=== PATIENT | male | born 1960 | race Caucasian/White ===

== ENCOUNTER 2017-02-06 01:58 | Emergency (ER) | payer SELFPAY ==
[~2017-02-06] VITALS: Ht 170.2 cm; Wt 86.4 kg
[2017-02-06 02:07] VITALS: BP 164/116; PULSE 122; RESP 16; TEMP 98.6; O2SAT 94
[2017-02-06] MEDS ORDERED: CLIN1CAP6 PO (02:25)
--- NOTE | 2017-02-06 03:22 | PD ---
HPI Chief Complaint: Facial Pain or Swelling Time Seen by Provider: 03:13 Travel History International Travel<30 days: No Contact w/Intl Traveler<30days: No Traveled to known affect area: No History of Present Illness HPI The patient is a 56-year-old male that had a dental extraction 4 days ago in [place] where apparently tooth #1 was removed. He is now edentulous on the uppers. He complained of progressive swelling in the right cheek and face since. He denies any fever. He denies any shortness of breath or airway obstruction. The patient has been taking clindamycin 300 mg OR 600 mg once daily for 2 days. PFSH Past Medical History GERD: Yes ("HISTORY OF CYCLIC VOMITING") Pneumonia: Yes (JUNE 2015) Tetanus Vaccination: > 5 Years Influenza Vaccination: No Past Surgical History Oral Surgery: Yes Other Surgery: Yes (HEMORRHOIDECTOMY: AGE 31) Social History Alcohol Use: No Tobacco Use: Yes (11/29 PPD) Substance Use: No Allergies-Medications (Allergen,Severity, Reaction): Coded Allergies: No Known Allergies (Unverified , 02/06/17) Reported Meds & Prescriptions Reported Meds & Active Scripts Active Percocet (Oxycodone-Acetaminophen) 7.5-325 mg Tab 1 Tab PO Q4H PRN Amoxicillin 875 Mg Tab 875 Mg PO BID 10 Days Cleocin (Clindamycin HCl) 300 Mg Cap 300 Mg PO Q6H 10 Days Reported Clindamycin (Clindamycin HCl) 300 Mg Cap 300 Mg PO BID Review of Systems Except as stated in HPI: all other systems reviewed are Neg Physical Exam Narrative GENERAL: The patient is alert, oriented 3 in moderate apparent distress with his right facial swelling. His vital signs show heart rate of 122 and blood pressure 160 12/28/15 but otherwise normal. SKIN: Focused skin assessment warm/dry. There is considerable swelling without any fluctuance on the right cheek and right mandibular area. There is no swelling below the mandible or below the tongue. There is no airway obstruction present. HEAD: Atraumatic. Normocephalic. EYES: Pupils equal and round. No scleral icterus. No injection or drainage. ENT: No nasal bleeding or discharge. Mucous membranes pink and moist. NECK: Trachea midline. No JVD. CARDIOVASCULAR: Regular rate and rhythm. No murmur appreciated. RESPIRATORY: No accessory muscle use. Clear to auscultation. Breath sounds equal bilaterally. GASTROINTESTINAL: Abdomen soft, non-tender, nondistended. Hepatic and splenic margins not palpable. MUSCULOSKELETAL: No obvious deformities. No clubbing. No cyanosis. No edema. NEUROLOGICAL: Awake and alert. No obvious cranial nerve deficits. Motor grossly within normal limits. Normal speech. PSYCHIATRIC: Appropriate mood and affect; insight and judgment normal. DENTAL: No loose or chipped teeth. No malocclusion. There is exquisite tenderness around tooth #1 or the wisdom tooth which apparently was extracted from that area. Data Data Last Documented VS Vital Signs Date Time Temp Pulse Resp B/P Pulse Ox O2 Delivery O2 Flow Rate FiO2 02/06/17 03:43 100.4 107 20 94 Room Air 02/06/17 02:07 164/116 Orders Complete Blood Count With Diff (02/06/17 03:22) Basic Metabolic Panel (Bmp) (02/06/17 03:22) Ceftriaxone Inj (Rocephin Inj) (02/06/17 03:30) Ketorolac Inj (Toradol Inj) (02/06/17 04:15) Labs Laboratory Tests Test 02/06/17 03:25 White Blood Count 15.8 TH/MM3 Red Blood Count 5.08 MIL/MM3 Hemoglobin 15.1 GM/DL Hematocrit 44.7 % Mean Corpuscular Volume 88.0 FL Mean Corpuscular Hemoglobin 29.7 PG Mean Corpuscular Hemoglobin 33.7 % Concent Red Cell Distribution Width 13.5 % Platelet Count 179 TH/MM3 Mean Platelet Volume 8.8 FL Neutrophils (%) (Auto) 78.1 % Lymphocytes (%) (Auto) 7.8 % Monocytes (%) (Auto) 11.3 % Eosinophils (%) (Auto) 0.3 % Basophils (%) (Auto) 2.5 % Neutrophils # (Auto) 12.4 TH/MM3 Lymphocytes # (Auto) 1.2 TH/MM3 Monocytes # (Auto) 1.8 TH/MM3 Eosinophils # (Auto) 0.0 TH/MM3 Basophils # (Auto) 0.4 TH/MM3 CBC Comment DIFF FINAL Differential Comment Sodium Level 142 MEQ/L Potassium Level 3.8 MEQ/L Chloride Level 111 MEQ/L Carbon Dioxide Level 21.6 MEQ/L Anion Gap 9 MEQ/L Blood Urea Nitrogen 17 MG/DL Creatinine 0.96 MG/DL Estimat Glomerular Filtration 81 ML/MIN Rate Random Glucose 114 MG/DL Calcium Level 9.1 MG/DL MDM Medical Decision Making Medical Screen Exam Complete: Yes Emergency Medical Condition: Yes Medical Record Reviewed: Yes Interpretation(s) The CBC shows a white count of 15,800 with 78% neutrophils but is otherwise unremarkable. The basic metabolic profile shows a GFR of 81 but is otherwise normal. Differential Diagnosis Dental infection, drainable abscess, Juan David's angina, Narrative Course The patient has a dental infection. No drainable abscess was noted. He does not have Juan Daivd's angina at this time. Diagnosis Primary Impression: Dental infection Additional Impression: Cellulitis of buccal space of mouth Additional Instructions: Take the clindamycin 300 mg 4 times daily. The Keflex is taken one tablet 4 times a day as well. Med/Other Pt SpecificInfo: Prescription(s) given Scripts Oxycodone-Acetaminophen (Percocet)7.5-325 mg Tab1 Tab PO Q4H PRN (PAIN) #30 TAB Ref 0 Prov:Tesfaye Goldberg MD 02/06/17 Amoxicillin 875 Mg [id number] Mg PO BID 10 Days Ref 0 Prov:Tesfaye Goldberg MD 02/06/17 Clindamycin (Cleocin)300 Mg [id number] Mg PO Q6H 10 Days Ref 0 Prov:Tesfaye Goldberg MD 02/06/17 Disposition: 01 DISCHARGE HOME Condition: Stable Tesfaye Goldberg MD February 06, 2017 03:22
[2017-02-06] MEDS ORDERED: cefTRIAXone INJ 2,000 MG in SODIUM CHLORIDE 0.9% INJ 100 ML IV ONE (03:30)
[2017-02-06] MEDS ORDERED: CLEO300C2 PO (03:35)
[2017-02-06] MEDS ORDERED: AMOX875T PO (03:35)
[2017-02-06 03:43] VITALS: PULSE 107; RESP 20; TEMP 100.4; O2SAT 94
[2017-02-06 03:46] LABS: AUTOMATED NEUTROPHIL # 12.4 TH/MM3 (1.8-7.7); BASOPHIL # 0.4 TH/MM3 (0-0.2); BASOPHIL % 2.5 % (0.0-2.0); EOSINOPHIL % 0.3 % (0.0-4.0); HEMATOCRIT 44.7 % (39.0-51.0); LYMPH % 7.8 % (9.0-44.0); LYMPHOCYTE # 1.2 TH/MM3 (1.0-4.8); MEAN CORPUSCULAR HEMOGLOBIN 29.7 PG (27.0-34.0); MEAN CORPUSCULAR HGB CONC 33.7 % (32.0-36.0); MONO % 11.3 % (0.0-8.0); NEUT % 78.1 % (16.0-70.0); PLATELET COUNT 179 TH/MM3 (150-450); RED BLOOD COUNT 5.08 MIL/MM3 (4.50-5.90); RED CELL DISTRIBUTION WIDTH 13.5 % (11.6-17.2); WHITE BLOOD COUNT 15.8 TH/MM3 (4.0-11.0)
[2017-02-06 03:51] LABS: HEMO FLAGS DIFF FINAL
[2017-02-06 03:54] LABS: POTASSIUM 3.8 MEQ/L (3.5-5.1)
[2017-02-06 03:57] LABS: BICARBONATE 21.6 MEQ/L (21.0-32.0)
[2017-02-06] MEDS ORDERED: PERC7.5T13 PO (04:08)
[2017-02-06] MEDS ORDERED: KETOROLAC TROMETHAMINE 60 MG/2 ML (IM) VIAL IVP ONE (04:15)
[2017-02-06 04:24] VITALS: BP 157/90; PULSE 108; RESP 20; O2SAT 95
== END 2017-02-06 04:36 | disposition home or self-care (01) ==
LOC: PHED 01:58
DX: K04.7 Periapical abscess without sinus (principal); K12.2 Cellulitis and abscess of mouth; F17.200 Nicotine dependence, unspecified, uncomplicated; Z87.19 Personal history of other diseases of the digestive system; Z87.01 Personal history of pneumonia (recurrent)
CPT/HCPCS: 80048; 85025; 96365; 96375; 99283; J0696; J1885